=== PATIENT | female | born 1965 | race African-American/Black ===

== ENCOUNTER 2021-10-22 14:11 | Inpatient (IN) | payer MEDICAID ==
[~2021-10-22] VITALS: Ht 175.3 cm; Wt 82.3 kg
[2021-10-22 23:35] LABS: BASOPHILS % 0.5 % (0.0-2.0); HEMATOCRIT. 42.5 % (36.0-48.0); HEMOGLOBIN. 13.9 g/dL (12.0-16.0); LYMPHOCYTES % 41.7 % (20.0-50.0); MEAN CORPUSCULAR HEMOGLOBIN 28.2 pg (28.0-32.0); MEAN CORPUSCULAR VOLUME 86.4 fL (81.0-99.0); MEAN PLATELET VOLUME 8.7 fl (7.4-10.4); MONOCYTES % 6.8 % (2.0-8.0); PLATELET 243 x1000/uL (130-400); RED BLOOD CELL COUNT 4.92 mill/uL (4.2-5.4); RED CELL DISTRIBUTION WIDTH 16.6 % (11.6-14.6)
[2021-10-22 23:40] LABS: CHLORIDE 110 mEq/L (98-107)
[2021-10-22 23:59] LABS: CLARITY URINE CLOUDY (CLEAR); COLOR URINE YELLOW (YELLOW); KETONES URINE NEGATIVE (NEGATIVE); LEUKOCYTE ESTERASE URINE 2+ (NEGATIVE); NITRITE URINE NEGATIVE (NEGATIVE); OCCULT BLOOD URINE NEGATIVE (NEGATIVE); PH URINE 5.5 (4.5-8.0); PROTEIN URINE NEGATIVE (NEGATIVE); SPECIFIC GRAVITY URINE 1.014 (1.005-1.030)
[2021-10-23] MEDS ORDERED: ASPIRIN 325MG EC TABLET PO ONE (01:30)
[2021-10-23] MEDS ORDERED: ACETAMINOPHEN 650MG/20.3ML UDC PO ONE (01:30)
[2021-10-23] MEDS ORDERED: MORPHINE SULFATE 4 MG/ML CPJ (NOT FOR IM USE) IV ONE (03:00)
[2021-10-23 08:00] VITALS: BP 135/105
[2021-10-23] MEDS ORDERED: ACETAMINOPHEN 325MG TABLET PO PRN ×2 (09:00)
[2021-10-23] MEDS ORDERED: MAGNESIUM/ALUMINUM HYDROXIDE/SIMETHICONE 30ML UDC PO PRN (09:00)
[2021-10-23] MEDS ORDERED: IPRATROPIUM/ALBUTEROL 0.5-3(2.5)MG/3ML NEB NEB PRN (09:00)
[2021-10-23] MEDS ORDERED: CLONIDINE 0.1MG TABLET PO PRN (09:00)
[2021-10-23] MEDS ORDERED: ONDANSETRON HCL 4MG/2ML INJ IV PRN (09:00)
[2021-10-23] MEDS ORDERED: ASPI-1497 PO (09:04)
[2021-10-23] MEDS ORDERED: LISI-186 PO (09:04)
[2021-10-23 10:26] VITALS: BP 135/105
[2021-10-23] MEDS: ENOXAPARIN 40MG/0.4ML SYR SUBCUT SCH (11:11)
[2021-10-23 12:00] VITALS: BP 172/91
[2021-10-23] MEDS ORDERED: POTASSIUM CHLORIDE 20MEQ TABLET SR PO NR (12:00)
[2021-10-23] MEDS: HYDROCODONE/ACETAMINOPHEN 5/325MG TABLET PO PRN (12:37)
[2021-10-23 13:51] LABS: BASOPHILS % 0.6 % (0.0-2.0); EOSINOPHILS % 1.9 % (0.0-5.0); HEMATOCRIT. 41.4 % (36.0-48.0); HEMOGLOBIN. 13.4 g/dL (12.0-16.0); LYMPHOCYTES % 46.2 % (20.0-50.0); MEAN CORPUSCULAR HEMOGLOBIN 28.6 pg (28.0-32.0); MEAN CORPUSCULAR VOLUME 88.2 fL (81.0-99.0); MEAN PLATELET VOLUME 8.5 fl (7.4-10.4); MONOCYTES % 6.9 % (2.0-8.0); NEUTROPHILS % 44.4 % (40.0-76.0); PLATELET 202 x1000/uL (130-400); RED CELL DISTRIBUTION WIDTH 16.8 % (11.6-14.6)
[2021-10-23 14:14] LABS: CHLORIDE 112 mEq/L (98-107)
[2021-10-23 14:27] LABS: PHOSPHORUS 3.6 mg/dL (2.5-4.9); T4 FREE 0.97 ng/dL (0.76-1.46)
[2021-10-23 14:43] LABS: CREATINE KINASE 67 IU/L (26-192); CREATINE KINASE MB FRACTION < 1.0 ng/mL (0.5-3.6)
[2021-10-23 16:00] VITALS: BP 126/85
[2021-10-23 20:00] VITALS: BP 119/82
[2021-10-23 20:46] LABS: CREATINE KINASE 59 IU/L (26-192); CREATINE KINASE MB FRACTION < 1.0 ng/mL (0.5-3.6)
[2021-10-24] VITALS (7 sets, daily range): BP systolic 124–165; BP diastolic 57–93
[2021-10-24 01:37] LABS: CREATINE KINASE 57 IU/L (26-192); CREATINE KINASE MB FRACTION < 1.0 ng/mL (0.5-3.6)
[2021-10-24 07:25] LABS: BASOPHILS % 0.5 % (0.0-2.0); HEMATOCRIT. 39.7 % (36.0-48.0); HEMOGLOBIN. 12.9 g/dL (12.0-16.0); LYMPHOCYTES % 43.9 % (20.0-50.0); MEAN CORPUSCULAR HEMOGLOBIN 28.4 pg (28.0-32.0); MEAN CORPUSCULAR VOLUME 87.3 fL (81.0-99.0); MONOCYTES % 7.2 % (2.0-8.0); NEUTROPHILS % 46.4 % (40.0-76.0); PLATELET 190 x1000/uL (130-400); RED BLOOD CELL COUNT 4.55 mill/uL (4.2-5.4); RED CELL DISTRIBUTION WIDTH 16.1 % (11.6-14.6)
[2021-10-24 07:31] LABS: CHLORIDE 112 mEq/L (98-107)
[2021-10-24] MEDS: LOSARTAN POTASSIUM 50 MG TABLET PO SCH (09:28)
[2021-10-24] MEDS: ENOXAPARIN 40MG/0.4ML SYR SUBCUT SCH (09:28)
[2021-10-24] MEDS: HYDROCODONE/ACETAMINOPHEN 5/325MG TABLET PO PRN (11:43)
[2021-10-24 21:05] LABS: *AMPHETAMINES SCREEN URINE NEGATIVE (NEGATIVE); *BARBITURATES SCREEN URINE NEGATIVE (NEGATIVE); *BENZODIAZEPINES SCREEN URINE NEGATIVE (NEGATIVE); *COCAINE SCREEN URINE NEGATIVE (NEGATIVE); CANNABINOID URINE SCREEN NEGATIVE (NEGATIVE); METHADONE URINE SCREEN NEGATIVE (NEGATIVE); OPIATES URINE SCREEN PRESUMTIVE POSITIVE (NEGATIVE); PHENCYCLIDINE URINE SCREEN NEGATIVE (NEGATIVE)
[2021-10-25] VITALS: BP 136/88
[2021-10-25 04:00] VITALS: BP 168/78
[2021-10-25] MEDS ORDERED: CLONIDINE 0.1MG TABLET PO PRN (05:15)
[2021-10-25] MEDS ORDERED: DOBUTAMINE 250MG PREMIX 250 ML IV NR ×2 (07:45→08:30)
[2021-10-25 08:00] VITALS: BP 145/77
[2021-10-25] MEDS: ENOXAPARIN 40MG/0.4ML SYR SUBCUT SCH (09:00)
[2021-10-25 12:30] VITALS: BP 133/83
[2021-10-25] MEDS ORDERED: DOBUTAMINE 250MG PREMIX 250 ML IV ONE (13:29)
[2021-10-25 16:00] VITALS: BP 139/91
[2021-10-25] MEDS: HYDROCODONE/ACETAMINOPHEN 5/325MG TABLET PO PRN (16:06)
[2021-10-25] MEDS: LOSARTAN POTASSIUM 50 MG TABLET PO SCH (16:07)
[2021-10-25 20:00] VITALS: BP 151/76
[2021-10-25] MEDS ORDERED: HYDRALAZINE HCL 25MG TABLET PO PRN (23:30)
[2021-10-26] VITALS: BP 109/67
[2021-10-26 04:00] VITALS: BP 118/71
[2021-10-26 07:36] LABS: VITAMIN B12 SERUM 226 pg/mL (211-911)
[2021-10-26 08:30] VITALS: BP 148/82
[2021-10-26] MEDS: HYDROCODONE/ACETAMINOPHEN 5/325MG TABLET PO PRN (08:32)
[2021-10-26] MEDS: LOSARTAN POTASSIUM 50 MG TABLET PO SCH (08:32)
[2021-10-26] MEDS: ENOXAPARIN 40MG/0.4ML SYR SUBCUT SCH (08:33)
[2021-10-26] MEDS ORDERED: LOSA50TA3 PO (11:31)
[2021-10-26 12:45] VITALS: BP 111/80
[2021-10-26 13:38] VITALS: BP 111/80
== END 2021-10-26 14:30 | disposition home or self-care (01) | DRG 203 ==
LOC: ER 14:11 → 6WST 10-23 02:35 → EDBEDREQ 10-23 02:37 → EDBEDREQTM 10-23 02:37 → ENRESERV 10-23 07:17 → SUPCPDRO 10-23 07:58
PROVIDERS: ADMIT Internal Medicine; ATTEND Internal Medicine
PROC: 4A02XM4 Measurement of Cardiac Total Activity, External Approach (ICD-10-PCS; principal; 2021-10-25)
PROC: 3E033HZ Introduction of Radioactive Substance into Peripheral Vein, Percutaneous Approach (ICD-10-PCS; 2021-10-25)
DX: M94.0 Chondrocostal junction syndrome [Tietze] (principal); E87.8 Other disorders of electrolyte and fluid balance, not elsewhere classified; E87.6 Hypokalemia; I10 Essential (primary) hypertension; R00.1 Bradycardia, unspecified; Z98.51 Tubal ligation status
CPT/HCPCS: 36415; 71045; 78452; 80048; 80053; 80061; 80305; 81003; 82306; 82550; 82553; 82607; 83735; 83880; 84100; 84439; 84443; 84484; 85025; 93005; 93017; 93306; 99285; A9500; J1250; J1650; J2270